=== PATIENT | female | born 1965 | race Caucasian/White ===

== ENCOUNTER 2017-06-18 12:23 | Inpatient (IN) | payer OTHER ==
[~2017-06-18] VITALS: Ht 162.6 cm; Wt 83.0 kg
[2017-06-18 13:12] LABS: HEMATOCRIT 48.6 % (36.0-46.0); MCHC 34.4 G/DL (30.0-36.0); MCV 93.1 FL (83-99); MEAN PLAT.VOLUME 9.6 uM^3 (9.5-12.4); PLATELET COUNT 269 K/uL (156-360); RBC DIS.WIDTH-CV 11.8 % (11.8-14.6); RBC DIS.WIDTH-SD 40.7 % (39-53); RED BLOOD COUNT 5.22 M/uL (3.80-5.20); WHITE BLOOD COUNT 15.5 K/uL (4.1-10.2)
[2017-06-18 13:21] LABS: CHLORIDE 100 mEq/L (99-109); POTASSIUM 3.8 mEq/L (3.7-5.4); SODIUM 139 mEq/L (136-147)
[2017-06-18 13:23] LABS: GLUCOSE 117 mg/dL (70-99)
[2017-06-18 13:24] LABS: ANION GAP 13 MEQ/L (2-14)
[2017-06-18 13:27] LABS: GFR ESTIMATE (CALCULATED) > 59 mL/min/; UREA NITROGEN (BUN) 19 mg/dL (9-23)
[2017-06-18] MEDS ORDERED: CYANOCOBALAM1000 MCG PO (14:38)
[2017-06-18] MEDS ORDERED: AZITHROMYCIN500 M1 PO (14:38)
[2017-06-18] MEDS ORDERED: LISINOPRIL40 MG PO (14:38)
[2017-06-18] MEDS ORDERED: HYDROCHLOROTH12.5 M3 PO (14:38)
[2017-06-18] MEDS ORDERED: CARVEDILOL25 MG PO (14:38)
[2017-06-18] MEDS ORDERED: PROAIR HFA8.5 GM IH (14:39)
[2017-06-18] MEDS ORDERED: BENADRYL25 MG PO (14:39)
[2017-06-18 16:37] VITALS: BP 128/80
[2017-06-18 17:12] LABS: POINT-OF-CARE METER ID UU14162508
[2017-06-18 19:31] VITALS: BP 133/97
[2017-06-19] VITALS (8 sets, daily range): BP systolic 152–181; BP diastolic 69–105
[2017-06-19 06:23] LABS: POINT-OF-CARE METER ID UU14162508
[2017-06-19 07:07] LABS: HEMATOCRIT 41.8 % (36.0-46.0); MCHC 35.2 G/DL (30.0-36.0); MCV 93.7 FL (83-99); MEAN PLAT.VOLUME 9.9 uM^3 (9.5-12.4); PLATELET COUNT 223 K/uL (156-360); RBC DIS.WIDTH-CV 11.7 % (11.8-14.6); RBC DIS.WIDTH-SD 40.1 % (39-53); RED BLOOD COUNT 4.46 M/uL (3.80-5.20); WHITE BLOOD COUNT 10.2 K/uL (4.1-10.2)
[2017-06-19 07:15] LABS: Estimated Average Glucose 128 mg/dL (70-123); HEMOGLOBIN A1c (GLYCOHEMOGLOB) 6.1 % HGB (Below 5.7)
[2017-06-19 07:33] LABS: ANION GAP 10 MEQ/L (2-14); CHLORIDE 102 MEQ/L (99-109); GFR ESTIMATE (CALCULATED) > 59 mL/min/; POTASSIUM 3.9 MEQ/L (3.7-5.4); SAMPLE HEMOLYSIS CHECK 0; SAMPLE ICTERIC CHECK 0; SAMPLE LIPEMIA CHECK 0; SODIUM 138 MEQ/L (136-147); UREA NITROGEN (BUN) 19 mg/dL (9-23)
[2017-06-19 07:34] LABS: GLUCOSE 217 mg/dL (70-99)
[2017-06-19 11:54] LABS: POINT-OF-CARE METER ID UU14162508
[2017-06-19 16:53] LABS: POINT-OF-CARE METER ID UU14162508
[2017-06-20 00:42] VITALS: BP 166/95
[2017-06-20 07:40] LABS: POINT-OF-CARE METER ID UU14162508
[2017-06-20 07:49] LABS: EOSINOPHIL (%) 0 % (0-5); HEMATOCRIT 39.2 % (36.0-46.0); IMMATURE GRANULOCYTE (%) 1.2 % (0.0-0.7); IMMATURE GRANULOCYTE COUNT 0.2 K/uL; INSTRUMENT ABS NEUTROPHIL CT 11.5 K/uL; MCH 31.6 PG (29.0-34.0); MCHC 33.4 G/DL (30.0-36.0); MCV 94.5 FL (83-99); MONOCYTE (%) 3.4 % (3-12); MONOCYTE COUNT 0.5 K/uL (0-0.8); NEUTROPHIL (%) 87.7 % (45-76); NEUTROPHIL COUNT 11.5 K/uL (1.8-6.4); PLATELET COUNT 204 K/uL (156-360); RBC DIS.WIDTH-CV 11.6 % (11.8-14.6); RBC DIS.WIDTH-SD 40.1 % (39-53); RED BLOOD COUNT 4.15 M/uL (3.80-5.20); WHITE BLOOD COUNT 13.2 K/uL (4.1-10.2)
[2017-06-20 08:00] VITALS: BP 181/89
[2017-06-20 08:05] LABS: ANION GAP 7 MEQ/L (2-14); CHLORIDE 108 MEQ/L (99-109); GFR ESTIMATE (CALCULATED) > 59 mL/min/; GLUCOSE 190 mg/dL (70-99); MAGNESIUM 1.6 mg/dl (1.3-2.7); POTASSIUM 3.4 MEQ/L (3.7-5.4); SAMPLE HEMOLYSIS CHECK 0; SAMPLE ICTERIC CHECK 0; SAMPLE LIPEMIA CHECK 0; SODIUM 142 MEQ/L (136-147); UREA NITROGEN (BUN) 15 mg/dL (9-23)
[2017-06-20 11:33] LABS: POINT-OF-CARE METER ID UU14208750
[2017-06-20 15:15] VITALS: BP 180/111
[2017-06-20 16:29] VITALS: BP 175/95
[2017-06-20 16:34] LABS: POINT-OF-CARE METER ID UU14162508
[2017-06-20 18:15] VITALS: BP 200/98
[2017-06-20 20:34] VITALS: BP 130/60
[2017-06-21 00:50] VITALS: BP 156/70
[2017-06-21 03:55] VITALS: BP 143/60
[2017-06-21 06:31] LABS: POINT-OF-CARE METER ID UU14162508
[2017-06-21 07:40] VITALS: BP 174/98
[2017-06-21 07:51] LABS: HEMATOCRIT 41.7 % (36.0-46.0); MCH 32.5 PG (29.0-34.0); MCHC 34.3 G/DL (30.0-36.0); MCV 94.8 FL (83-99); MEAN PLAT.VOLUME 9.8 uM^3 (9.5-12.4); PLATELET COUNT 203 K/uL (156-360); RBC DIS.WIDTH-CV 11.9 % (11.8-14.6); RBC DIS.WIDTH-SD 41.8 % (39-53); WHITE BLOOD COUNT 13.8 K/uL (4.1-10.2)
[2017-06-21 08:22] LABS: ANION GAP 6 MEQ/L (2-14); CHLORIDE 108 MEQ/L (99-109); GFR ESTIMATE (CALCULATED) > 59 mL/min/; GLUCOSE 190 mg/dL (70-99); MAGNESIUM 1.8 mg/dl (1.3-2.7); POTASSIUM 4.2 MEQ/L (3.7-5.4); SAMPLE HEMOLYSIS CHECK 0; SAMPLE ICTERIC CHECK 0; SAMPLE LIPEMIA CHECK 0; SODIUM 140 MEQ/L (136-147); UREA NITROGEN (BUN) 18 mg/dL (9-23)
[2017-06-21 11:41] LABS: POINT-OF-CARE METER ID UU14162508; POINT-OF-CARE USER ID PUTDRM
[2017-06-21 16:50] LABS: POINT-OF-CARE METER ID UU14162508
[2017-06-21 16:55] VITALS: BP 188/104
[2017-06-22 00:01] VITALS: BP 173/73
[2017-06-22 06:52] LABS: POINT-OF-CARE METER ID UU14162508
[2017-06-22 07:47] VITALS: BP 162/85
[2017-06-22] MEDS ORDERED: SPIRIVA RESPIMAT4 GM IH (10:48)
[2017-06-22] MEDS ORDERED: APRESOLINE50 MG PO (10:48)
[2017-06-22] MEDS ORDERED: LEVOFLOXACIN750 MG PO (10:48)
[2017-06-22] MEDS ORDERED: NICOTINE PATCH1 EAC2 TD (10:48)
[2017-06-22] MEDS ORDERED: PREDNISONE10 MG PO (10:48)
[2017-06-22] MEDS ORDERED: ADVAIR HFA120 INHALA IH (10:48)
[2017-06-22 11:42] LABS: POINT-OF-CARE METER ID UU14162508
== END 2017-06-22 13:48 | disposition home or self-care (01) | DRG 189 ==
LOC: EME 12:23 → EDOF 14:31 → 2EAST 14:31 → ENRESERV 14:35 → 2EAST 16:15
PROVIDERS: Internal Medicine
DX: J96.01 Acute respiratory failure with hypoxia (principal); J44.1 Chronic obstructive pulmonary disease with (acute) exacerbation; J44.0 Chronic obstructive pulmonary disease with (acute) lower respiratory infection; F10.10 Alcohol abuse, uncomplicated; E53.8 Deficiency of other specified B group vitamins; J15.4 Pneumonia due to other streptococci; F17.200 Nicotine dependence, unspecified, uncomplicated; I10 Essential (primary) hypertension; J20.9 Acute bronchitis, unspecified; R73.03 Prediabetes; E87.6 Hypokalemia
CPT/HCPCS: 71020; 80048; 82948; 83036; 83605; 83735; 84100; 85025; 85027; 87040; 87070; 87205; 93005; 94640; 94640 76; 94799; 99202; 99281; 99284; J0360; J1650; J1815; J1956; J2920; J2930; J7030

== ENCOUNTER 2017-07-05 13:23 | Emergency (ER) | payer OTHER ==
[~2017-07-05] VITALS: Ht 162.6 cm; Wt 82.9 kg
[~2017-07-05 13:23] MED LIST: ADVAIR HFA120 INHALA IH; APRESOLINE50 MG PO; AZITHROMYCIN500 M1 PO; BENADRYL25 MG PO; CARVEDILOL25 MG PO; CYANOCOBALAM1000 MCG PO; HYDROCHLOROTH12.5 M3 PO; LEVOFLOXACIN750 MG PO; LISINOPRIL40 MG PO; NICOTINE PATCH1 EAC2 TD; PREDNISONE10 MG PO; PROAIR HFA8.5 GM IH; SPIRIVA RESPIMAT4 GM IH
[2017-07-05] MEDS ORDERED: APRESOLINE50 MG PO (14:26)
[2017-07-05 15:40] LABS: CHLORIDE 103 mEq/L (99-109); POTASSIUM 3.6 mEq/L (3.7-5.4); SODIUM 134 mEq/L (136-147)
[2017-07-05 15:41] LABS: GLUCOSE 134 mg/dL (70-99)
[2017-07-05 15:43] LABS: ANION GAP 9 MEQ/L (2-14)
[2017-07-05 15:45] LABS: GFR ESTIMATE (CALCULATED) > 59 mL/min/
[2017-07-05 15:46] LABS: UREA NITROGEN (BUN) 19 mg/dL (9-23)
[2017-07-05 15:48] LABS: HEMATOCRIT 35.2 % (36.0-46.0); MCH 31.6 PG (29.0-34.0); MCHC 33.2 G/DL (30.0-36.0); MCV 95.1 FL (83-99); MEAN PLAT.VOLUME 9.7 uM^3 (9.5-12.4); RBC DIS.WIDTH-CV 12.5 % (11.8-14.6); RBC DIS.WIDTH-SD 43.6 % (39-53); WHITE BLOOD COUNT 6.2 K/uL (4.1-10.2)
[2017-07-05 16:07] LABS: ADD MIUA? YES; BILIRUBIN NEGATIVE; BLOOD NEGATIVE; COLOR AMBER ((YELLOW)); GLUCOSE (STRIP) NEGATIVE; KETONES NEGATIVE; LEUKOCYTES TRACE; NITRITE NEGATIVE; PROTEIN (STRIP) 30; SPECIFIC GRAVITY 1.018 (1.000-1.030)
[2017-07-05 16:15] LABS: BACTERIA RARE /HPF; CALCIUM OXALATE CRYSTALS 1+ /HPF; EPITHELIAL CELLS RARE /HPF; MUCUS TRACE /LPF; UCUL ADDED? YES
[2017-07-05 16:20] LABS: HEMATOLOGY COMMENT 1 SN; PLAT.SUFFICIENCY DECREASED
[2017-07-05 16:22] LABS: PLATELET COUNT 111 K/uL (156-360)
[2017-07-05] MEDS ORDERED: MACROBID100 MG PO (17:09)
[2017-07-05 17:43] VITALS: BP 121/78
== END 2017-07-05 17:44 | disposition home or self-care (01) ==
LOC: EME 13:23
PROVIDERS: Emergency Medicine
DX: N39.0 Urinary tract infection, site not specified (principal); R42 Dizziness and giddiness; R53.1 Weakness; R03.1 Nonspecific low blood-pressure reading; T50.995A Adverse effect of other drugs, medicaments and biological substances, initial encounter; I10 Essential (primary) hypertension; F17.200 Nicotine dependence, unspecified, uncomplicated
CPT/HCPCS: 71020; 80048; 81003; 83605; 85027; 87040; 87086; 93005; 99281; 99284; J7030

== ENCOUNTER 2018-04-26 12:23 | Emergency (ER) | payer OTHER ==
[~2018-04-26] VITALS: Ht 162.6 cm; Wt 94.0 kg
[~2018-04-26 12:23] MED LIST changes: +MACROBID100 MG PO
[2018-04-26 13:41] LABS: HEMATOCRIT 39.4 % (36.0-46.0); HEMOGLOBIN 13.5 G/DL (11.9-15.5); MCH 32.1 PG (29.0-34.0); MCHC 34.3 G/DL (30.0-36.0); MCV 93.8 FL (83-99); PLATELET COUNT 192 K/uL (156-360); RBC DIS.WIDTH-CV 11.9 % (11.8-14.6); RBC DIS.WIDTH-SD 40.6 % (39-53); WHITE BLOOD COUNT 9.1 K/uL (4.1-10.2)
[2018-04-26 13:58] LABS: CHLORIDE 103 mEq/L (99-109); POTASSIUM 4.5 mEq/L (3.7-5.4); SODIUM 140 mEq/L (136-147)
[2018-04-26 13:59] LABS: GLUCOSE 126 mg/dL (70-99)
[2018-04-26 14:03] LABS: CREATININE 0.9 mg/dL (0.6-1.3); GFR ESTIMATE (CALCULATED) > 59 mL/min/
[2018-04-26 14:04] LABS: UREA NITROGEN (BUN) 27 mg/dL (9-23)
[2018-04-26 16:13] LABS: TROP-I INTERPRETATION NEGATIVE; TROPONIN-I < 0.01 ng/mL (0.0-0.30)
[2018-04-26 17:15] LABS: TROP-I INTERPRETATION NEGATIVE; TROPONIN-I < 0.01 ng/mL (0.0-0.30)
[2018-04-26 17:39] VITALS: BP 145/77
== END 2018-04-26 17:40 | disposition home or self-care (01) ==
LOC: EME 12:23 → RME 12:23
PROVIDERS: Physician Assistant Medical
DX: R55 Syncope and collapse (principal); I44.7 Left bundle-branch block, unspecified; I10 Essential (primary) hypertension; J44.9 Chronic obstructive pulmonary disease, unspecified; R73.03 Prediabetes; I42.9 Cardiomyopathy, unspecified; J30.2 Other seasonal allergic rhinitis; Z79.51 Long term (current) use of inhaled steroids; Z87.891 Personal history of nicotine dependence; Z87.01 Personal history of pneumonia (recurrent); Z88.2 Allergy status to sulfonamides; Z88.8 Allergy status to other drugs, medicaments and biological substances
CPT/HCPCS: 71046; 80048; 82948; 84484; 85027; 93005; 99281; 99284